=== PATIENT | female | born 1930 | race Caucasian/White ===

== ENCOUNTER → 2016-09-30 | Outpatient (CLI) | payer MEDICARE ==
[~2016-09-30] MED LIST: ACIDCAP8 PO; AMLO10 PO; ASPI-110 PO; BIOT50005 PO; BUPR300T PO; CALTTAB PO; FEXO15TA PO; MONT10TA2 PO; MULTTAB67 PO; PANT40TA3 PO; PRAV20TA2 PO; TRAM50TA PO; ZOFR4TAB PO; ZOLP10TA3 PO
[2016-09-30 12:40] LABS: AUTOMATED NEUTROPHIL # 5.4 TH/MM3 (1.8-7.7); BASOPHIL # 0.1 TH/MM3 (0-0.2); BASOPHIL % 0.7 % (0.0-2.0); EOSINOPHIL # 0.2 TH/MM3 (0-0.4); HEMO FLAGS DIFF FINAL; LYMPH % 21.5 % (9.0-44.0); LYMPHOCYTE # 1.7 TH/MM3 (1.0-4.8); MEAN CORPUSCULAR HEMOGLOBIN 29.5 PG (27.0-34.0); MEAN CORPUSCULAR HGB CONC 33.5 % (32.0-36.0); MONO % 7.2 % (0.0-8.0); NEUT % 68.6 % (16.0-70.0); PLATELET COUNT 271 TH/MM3 (150-450); RED BLOOD COUNT 4.88 MIL/MM3 (4.00-5.30); RED CELL DISTRIBUTION WIDTH 14.5 % (11.6-17.2); WHITE BLOOD COUNT 7.9 TH/MM3 (4.0-11.0)
[2016-09-30 13:00] LABS: ANION GAP 8 MEQ/L (5-15); AST (GOT) 17 U/L (15-37); BICARBONATE 25.7 MEQ/L (21.0-32.0); BLOOD UREA NITROGEN 24 MG/DL (7-18); CHLORIDE 109 MEQ/L (98-107); GLOMERULAR FILTRATION RATE 46 ML/MIN (>89); GLUCOSE,FASTING 84 MG/DL (74-99); POTASSIUM 4.3 MEQ/L (3.5-5.1); SODIUM (NA) 143 MEQ/L (136-145)
[2016-09-30 13:12] LABS: ALKALINE PHOSPHATASE 73 U/L (45-117); ALT (GPT) 22 U/L (10-53); HDL CHOLESTEROL 92.9 MG/DL (40.0-60.0); LDL CHOLESTEROL 49 MG/DL (0-99); TOTAL BILIRUBIN ADULT 0.5 MG/DL (0.2-1.0)
[2016-09-30 16:56] LABS: HEMOGLOBIN A1b 1.8 %; HEMOGLOBIN Ao 84.8 %; HEMOGLOBIN LA1C 2.1 %; HEMOGLOBIN P3 5.7 %
== END ==
LOC: PLAB 08:30
PROVIDERS: ATTEND Family Medicine
DX: I10 Essential (primary) hypertension (principal); E78.5 Hyperlipidemia, unspecified; G47.00 Insomnia, unspecified
CPT/HCPCS: 36415; 80053; 80061; 83036; 84443; 85025

== ENCOUNTER → 2016-10-09 | Outpatient (CLI) | payer MEDICARE ==
[2016-10-09 17:18] LABS: BICARBONATE 27.1 MEQ/L (21.0-32.0)
== END ==
LOC: PLAB 11:04
PROVIDERS: ATTEND Internal Medicine Cardiovascular Disease
DX: I10 Essential (primary) hypertension (principal); I48.91 Unspecified atrial fibrillation; I34.0 Nonrheumatic mitral (valve) insufficiency
CPT/HCPCS: 36415; 80048

== ENCOUNTER 2016-12-08 12:13 | Emergency (ER) | payer MEDICARE ==
[~2016-12-08] VITALS: Ht 167.6 cm; Wt 78.0 kg
[~2016-12-08 12:13] MED LIST changes: -TRAM50TA PO
[2016-12-08 12:15] VITALS: BP 143/91; PULSE 98; RESP 15; TEMP 98.2; O2SAT 98
--- NOTE | 2016-12-08 13:08 | PD ---
HPI Chief Complaint: Fall Time Seen by Provider: 13:03 Travel History International Travel<30 days: No Contact w/Intl Traveler<30days: No Traveled to known affect area: No History of Present Illness HPI 86-year-old female that presents to the ED for evaluation of trip and fall. Per patient she tripped on the divider between the living room in the kitchen. Per patient she landed on carpet. Per patient most of her pain is in her right foot as well as the right shoulder. She denies hitting her head or lose consciousness. She does takes her although. She states that as long as she doesn't move it or put weight or not the pain is not too bad. Per patient she puts weight on it the pain is severe. She denies any prior injuries. No history of osteoporosis as far as the patient knows. No chest pain or abdominal pain. No hip pain or knee pain. No open sores. No neck pain or back pain. Allergies to multiple medications. Pain at this time is 2 out of 10. Denies any weakness, numbness, tingling. 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, SKIN CANCERS) Cardiovascular Problems: No Diabetes: No Diminished Hearing: No Endocrine: No Gastrointestinal Disorders: Yes (GERD) GERD: Yes Genitourinary: Yes (URGENCY) Hepatitis: No Hiatal Hernia: No Hypertension: Yes Immune Disorder: No Musculoskeletal: No Neurologic: No Psychiatric: No Reproductive: No Respiratory: No Thyroid Disease: No ?: Not Menopausal: Yes Past Surgical History Abdominal Surgery: Yes (COLOSTOMY & REVERSAL (COLONOSCOPY PERF)) AICD: No Appendectomy: Yes Ear Surgery: Yes (RIGHT EAR SURGERY X 3 5 YRS AGO) Eye Surgery: Yes (RIGHT EYE CATARACT EXTRACT.) Genitourinary Surgery: Yes (BLADDER SUSPENSION (X2)) Gynecologic Surgery: Yes (HYSTERECTOMY) Hysterectomy: Yes Joint Replacement: Yes (RIGHT KNEE) Pacemaker: No Thoracic Surgery: Yes (LEFT MASTECTOMY, BREAST RECONSTRUCTION L, BREAST REDUCTION R) Other Surgery: Yes Social History Alcohol Use: No Tobacco Use: No Substance Use: No Allergies-Medications (Allergen,Severity, Reaction): Coded Allergies: Gentamicin (Verified Allergy, Severe, JOINT PAIN, 12/08/16) Ceclor (Verified Allergy, Unknown, Rash, 12/08/16) 05/03/13--DOES NOT REMEMBER SEVERITY Morphine (Verified Adverse Reaction, Severe, Hallucinations, 12/08/16) Uncoded Allergies: ENDOCET (Allergy, Severe, VOMITING, VIOLENT HEADACHES, 11/18/11) GELNIQUE (Adverse Reaction, Severe, BLADDER SPASM, 11/18/11) JEL Reported Meds & Prescriptions Reported Meds & Active Scripts Active Reported Biotin 5,000 Mcg Cap 10,000 Mcg PO DAILY Pravastatin 20 Mg Tab 20 Mg PO DAILY Zolpidem (Zolpidem Tartrate) 10 Mg Tab 10 Mg PO HS PRN Aspirin 81 (Aspirin) 81 Mg Tabdr 81 Mg PO EVERY OTHER DAY Norvasc (Amlodipine Besylate) 10 Mg Tab 10 Mg PO DAILY Khushbu Allergy (Fexofenadine HCl) 180 Mg Tab 180 Mg PO DAILY Caltrate 600+D (Calcium Carbonate-Cholecalciferol) 600-800 Mg-Unit Tab 1 Tab PO DAILY Acidophilus High-Potency (Probiotic Product) 1 Cap Cap 1 Caplet PO DAILY Multiple Vitamin 1 Tab 1 Tab PO DAILY Singulair (Montelukast Sodium) 10 Mg Tab 10 Mg PO HS Bupropion HCl ER 24 HR (Bupropion HCl) 300 Mg Tab 300 Mg PO DAILY Review of Systems Except as stated in HPI: all other systems reviewed are Neg Physical Exam Narrative GENERAL: SKIN: Warm and dry. HEAD: Atraumatic. Normocephalic. EYES: Pupils equal and round. No scleral icterus. No injection or drainage. ENT: No nasal bleeding or discharge. Mucous membranes pink and moist. Tongue is midline. No uvula deviation. NECK: Trachea midline. No JVD. CARDIOVASCULAR: Regular rate and rhythm. No murmurs, S3, S4. RESPIRATORY: No accessory muscle use. Clear to auscultation. Breath sounds equal bilaterally. GASTROINTESTINAL: Abdomen soft, non-tender, nondistended. Hepatic and splenic margins not palpable. MUSCULOSKELETAL: Extremities without clubbing, cyanosis, or edema. No obvious deformities. Patient has full range of motion of the right shoulder but has pain with abduction. No obvious bruises or contusions noted in the area. Patient does have significant bruising and swelling on the dorsal aspect of the right foot. Able to move it fully. No lateral medial malleolar pain. Full range of motion of knee and hip. Pain is reproducible with touch of the dorsal aspect of the right foot. No obvious injury to the toes. Good capillary refill. 2+ pulses bilaterally. Full range of motion of the left upper and lower extremities. No lumbar, thoracic, cervical tenderness to palpation. No sign of head injury noted. NEUROLOGICAL: Awake and alert. No obvious cranial nerve deficits. Motor grossly within normal limits. Five out of 5 muscle strength in the arms and legs. Normal speech. PSYCHIATRIC: Appropriate mood and affect; insight and judgment normal. Data Data Last Documented VS Vital Signs Date Time Temp Pulse Resp B/P Pulse Ox O2 Delivery O2 Flow Rate FiO2 12/08/16 12:15 98.2 98 15 143/91 98 Orders Foot, Complete (Zth1mmg) (12/08/16 12:59) Shoulder, Complete (>2vws) (12/08/16 12:59) Ice/Cold Pack (12/08/16 12:59) Ct Brain W/O Iv Contrast(Rout) (12/08/16 12:59) Acetaminophen (Tylenol) (12/08/16 14:15) Splint Or Brace Apply/Monitor (12/08/16 14:13) [facility] Medical Decision Making Medical Screen Exam Complete: Yes Emergency Medical Condition: Yes Medical Record Reviewed: Yes Interpretation(s) Last Impressions Foot X-Ray 12/08/16 1259 Signed Impressions: Service Date/Time: Thursday, December 08, 2016 13:28 - CONCLUSION: Nondisplaced styloid process fracture of the fifth metatarsal base. Edin Quinn MD xray of the right shoulder showed no acute disease CT head negative Differential Diagnosis Fracture versus sprain versus strain versus contusion Narrative Course 86-year-old female that presents to the ED for evaluation of trip and fall. Patient was properly examined and was found to have signs and symptoms concerning for bony injuries. At this time I recommend imaging to rule out any sign of acute disease. Patient neurovascular intact. Imaging showed nondisplaced fracture of the right styloid process of the fifth metatarsal. Patient was reassured. At this time I recommend splinting and close follow with podiatry. Case was discussed in my attending Dr. Kwon who was made aware of all findings and who agrees with plan. At this time because of patient's age I do recommend treating her pain with Tylenol and she does already take blood thinners. Ice and elevation. Patient was given information for global creative chairman on-call. Follow with PCP. See ED worsening symptoms. Diagnosis Primary Impression: Metatarsal bone fracture Qualified Code: S92.354A - Closed nondisplaced fracture of fifth metatarsal bone of right foot, initial encounter Additional Impressions: Contusion Qualified Code: S40.011A - Contusion of right shoulder, initial encounter Fall Qualified Code: W19.XXXA - Fall, initial encounter Referrals: Radha Kiser DPM Patient Instructions: General Instructions Additional Instructions: Take tylenol for pain as needed. Follow-up with PCP and global creative chairman See ED for any worsening symptoms. Do not drink or drive while taking pain medication. Apply ice as needed for pain Med/Other Pt SpecificInfo: Prescription(s) given Disposition: 01 DISCHARGE HOME Condition: Stable Anthony Bailey Dec 08, 2016 13:08
[2016-12-08] MEDS ORDERED: ACETAMINOPHEN 325 MG TAB PO ONE (14:15)
--- NOTE | 2016-12-08 14:15 | RADHPO ---
EXAM DATE/TIME: 12/08/2016 13:28 [facility] COMPARISON: No previous studies available for comparison. INDICATIONS : Right foot pain post fall. MEDICAL HISTORY : None. SURGICAL HISTORY : None. ENCOUNTER: Initial ACUITY: 1 day PAIN SCORE: 8/10 LOCATION: Right foot. FINDINGS: 3 views of the right foot. Diffuse bone demineralization. Nondisplaced or subtle fracture of the base of the fifth metatarsal involving the styloid process. Moderate sized plantar calcaneal spur. CONCLUSION: Nondisplaced styloid process fracture of the fifth metatarsal base. Edin Quinn MD on December 08, 2016 at 14:12 Board Certified Radiologist. This report was verified electronically.
--- NOTE | 2016-12-08 14:17 | RADHPO ---
EXAM DATE/TIME: 12/08/2016 13:31 [facility] COMPARISON: No previous studies available for comparison. INDICATIONS : Right shoulder pain post fall. MEDICAL HISTORY : None. SURGICAL HISTORY : None. ENCOUNTER: Initial ACUITY: 1 day PAIN SCORE: 5/10 LOCATION: Right shoulder. FINDINGS: 4 views right shoulder. Bone alignment within normal limits. No evidence of fracture. Mild hypertrop hic change of the acromioclavicular joint. Small osteophytes of the glenohumeral joint. CONCLUSION: Mild arthritic findings of the acromioclavicular joint and glenohumeral joint. No evidence of fractur e. Edin Quinn MD on December 08, 2016 at 14:14 Board Certified Radiologist. This report was verified electronically.
[2016-12-08] MEDS ORDERED: TRAM50TA PO (14:37)
--- NOTE | 2016-12-08 15:20 | RADHPO ---
EXAM DATE/TIME: 12/08/2016 15:01 [facility] COMPARISON: No previous studies available for comparison. INDICATIONS : Fall. Headache. RADIATION DOSE: 58.72 CTDIvol (mGy) MEDICAL HISTORY : Carcinoma, breast. SURGICAL HISTORY : Hysterectomy. ENCOUNTER: Initial ACUITY: 1 day PAIN SCALE: 4/10 LOCATION: cranial TECHNIQUE: Multiple contiguous axial images were obtained of the head. Using automated exposure control and adj ustment of the mA and/or kV according to patient size, radiation dose was kept as low as reasonably a chievable to obtain optimal diagnostic quality images. FINDINGS: There is no evidence for intracranial hemorrhage, mass effect, mass lesions, or edema. The visualize d bony structures appear intact. Slight degree of brain atrophy is seen. Slight periventricular whit e matter changes are seen nonspecific mostly consistent with chronic small vessel ischemic changes. There are no signs of acute infarction for technique. CONCLUSION: Slight atrophic and small vessel ischemic changes without any evidence for acute hemorrhage or mass effect. Adrianne Major MD on December 08, 2016 at 15:14 Board Certified Radiologist. This report was verified electronically.
== END 2016-12-08 16:41 | disposition home or self-care (01) ==
LOC: PHEFT 12:13
DX: S92.354A Nondisplaced fracture of fifth metatarsal bone, right foot, initial encounter for closed fracture (principal); S40.011A Contusion of right shoulder, initial encounter; I10 Essential (primary) hypertension; W18.09XA Striking against other object with subsequent fall, initial encounter; Y93.01 Activity, walking, marching and hiking; Y92.000 Kitchen of unspecified non-institutional (private) residence as the place of occurrence of the external cause
CPT/HCPCS: 29515; 70450; 73030; 73630

== ENCOUNTER → 2017-07-16 | Outpatient (CLI) | payer MEDICARE ==
[~2017-07-16] MED LIST changes: -ASPI-110 PO; +ASPI1TAB57 PO; -PANT40TA3 PO; +TRAM50TA PO; -ZOFR4TAB PO
[2017-07-16 13:11] LABS: AUTOMATED NEUTROPHIL # 4.2 TH/MM3 (1.8-7.7); BASOPHIL # 0.1 TH/MM3 (0-0.2); BASOPHIL % 0.9 % (0.0-2.0); EOSINOPHIL # 0.2 TH/MM3 (0-0.4); EOSINOPHIL % 2.7 % (0.0-4.0); HEMO FLAGS DIFF FINAL; LYMPHOCYTE # 1.9 TH/MM3 (1.0-4.8); MEAN CELL VOLUME 90.6 FL (80.0-100.0); MEAN CORPUSCULAR HEMOGLOBIN 30.3 PG (27.0-34.0); MEAN CORPUSCULAR HGB CONC 33.4 % (32.0-36.0); MONO % 10.1 % (0.0-8.0); NEUT % 59.3 % (16.0-70.0); PLATELET COUNT 242 TH/MM3 (150-450); RED BLOOD COUNT 4.63 MIL/MM3 (4.00-5.30); RED CELL DISTRIBUTION WIDTH 14.2 % (11.6-17.2); WHITE BLOOD COUNT 7.2 TH/MM3 (4.0-11.0)
[2017-07-16 14:00] LABS: ANION GAP 7 MEQ/L (5-15); AST (GOT) 16 U/L (15-37); BICARBONATE 27.2 MEQ/L (21.0-32.0); BLOOD UREA NITROGEN 22 MG/DL (7-18); CHLORIDE 106 MEQ/L (98-107); GLOMERULAR FILTRATION RATE 35 ML/MIN (>89); GLUCOSE,FASTING 89 MG/DL (74-99); POTASSIUM 4.3 MEQ/L (3.5-5.1); SODIUM (NA) 140 MEQ/L (136-145)
[2017-07-16 14:02] LABS: ALT (GPT) 18 U/L (10-53)
[2017-07-16 14:05] LABS: ALKALINE PHOSPHATASE 86 U/L (45-117); LDL CHOLESTEROL 44 MG/DL (0-99); TOTAL BILIRUBIN ADULT 0.4 MG/DL (0.2-1.0)
== END ==
LOC: PLAB 09:07
PROVIDERS: ATTEND Family Medicine
DX: I10 Essential (primary) hypertension (principal); E78.5 Hyperlipidemia, unspecified; I48.91 Unspecified atrial fibrillation; K21.9 Gastro-esophageal reflux disease without esophagitis
CPT/HCPCS: 36415; 80053; 80061; 85025

== ENCOUNTER → 2017-07-28 | Outpatient (CLI) | payer MEDICARE ==
[2017-07-28 14:23] LABS: BICARBONATE 25.5 MEQ/L (21.0-32.0); POTASSIUM 4.5 MEQ/L (3.5-5.1)
== END ==
LOC: PLAB 10:00
PROVIDERS: ATTEND Family Medicine
DX: I10 Essential (primary) hypertension (principal)
CPT/HCPCS: 36415; 80048